=== PATIENT | male | born 1975 | race African-American/Black ===

== ENCOUNTER 2021-12-11 07:35 | Emergency (ER) | payer OTHER ==
[2021-12-11] MEDS ORDERED: NITROGLYCERIN OINT 1 INCH/GM PACKET TOPICAL STA (07:49)
[2021-12-11] MEDS ORDERED: ASPIRIN 81 MG PO STA (07:49)
--- NOTE | 2021-12-11 07:52 | ED ---
General Adult HPI - General Chief complaint: Chest Pain Stated complaint: chest pain, back discomfort Time Seen by Provider: 12/11/21 07:45 Source: patient, RN notes reviewed Mode of arrival: ambulatory Limitations: no limitations - History of Present Illness Initial comments: Patient is a pleasant 45-year-old male presents emergency department with britt more with chest discomfort. Patient had an episode 2 days ago that felt like pressure and just lasted for a few minutes. Patient was sweaty at that time. Patient had return of symptoms last couple of hours. Discomfort in the chest as pressure and near resolved. There is also some mild discomfort of her back. There was some radiation towards left arm. There was some mild dyspnea. No sweating today. Mild nausea. No history of similar symptoms previously. No history of cardiac disease. Patient is father does have history of cardiac disease. - Related Data Home Medications Medication Instructions Recorded Confirmed Aspirin 81 mg PO DAILY 12/11/21 12/11/21 Atorvastatin [Lipitor] 20 mg PO HS 12/11/21 12/11/21 NIFEdipine [NIFEdipine ER 60 mg PO DAILY 12/11/21 12/11/21 (Osmotic)] carvediloL 12.5 mg PO BID 12/11/21 12/11/21 Allergies Allergy/AdvReac Type Severity Reaction Status Date / Time No Known Allergies Allergy Verified 12/11/21 08:44 Review of Systems ROS Statement: Those systems with pertinent positive or pertinent negative responses have been documented in the HPI. ROS Other: All systems not noted in ROS Statement are negative. Constitutional: Denies: fever Eyes: Denies: eye pain ENT: Denies: ear pain Respiratory: Denies: cough Cardiovascular: Reports: as per HPI, chest pain Endocrine: Denies: fatigue Gastrointestinal: Reports: as per HPI. Denies: abdominal pain, vomiting Genitourinary: Denies: dysuria Musculoskeletal: Reports: as per HPI Skin: Denies: rash Neurological: Denies: weakness Past Medical History Past Medical History: No Reported History, Hyperlipidemia, Hypertension History of Any Multi-Drug Resistant Organisms: None Reported Past Surgical History: Appendectomy Past Psychological History: No Psychological Hx Reported Smoking Status: Never smoker Past Alcohol Use History: Occasional Past Drug Use History: None Reported General Exam Limitations: no limitations General appearance: alert, in no apparent distress Head exam: Present: normocephalic Eye exam: Present: normal appearance Neck exam: Present: normal inspection Respiratory exam: Present: normal lung sounds bilaterally. Absent: chest wall tenderness Cardiovascular Exam: Present: regular rate, normal rhythm, normal heart sounds Expanded Peripheral pulses: 2+: Radial (R), Radial (L), Posterior Tibialis (R), Posterior Tibialis (L) GI/Abdominal exam: Present: soft. Absent: tenderness Extremities exam: Present: normal inspection. Absent: pedal edema, calf tenderness Neurological exam: Present: alert Psychiatric exam: Present: normal affect, normal mood Skin exam: Present: normal color Course Vital Signs 12/11/21 12/11/21 07:37 08:03 Temperature 98.0 F 97.1 F L Pulse Rate 66 58 L Respiratory 18 20 Rate Blood Pressure 132/82 134/88 O2 Sat by Pulse 99 98 Oximetry EKG Findings - EKG Comments: EKG Findings:: Sinus rhythm rate 63. CT 188. QRS 89. QT 404. QTC 412. Normal axis. Normal QRS. No acute ST change. Medical Decision Making - Medical Decision Making Patient reevaluated and updated. Patient resting comfortably in bed, symptom- free. Patient advised admission for repeat enzymes, observation, additional testing and cardiac evaluation. Patient refuses this. Patient does demonstrate medical decision making. Patient is made aware that cardiac disease has not been ruled out and heart attack has not been ruled out at this time. Despite this patient refuses to stay and will leave AGAINST MEDICAL ADVICE. Patient states he has thinks he needs computed today. Patient does agree to close follow-up with his doctor and further testing at that point. Patient is specifically made aware of lung nodule and need for follow-up with that as well. - Lab Data Result diagrams: 12/11/21 07:55 12/11/21 07:55 Lab Results 12/11/21 12/11/21 12/11/21 Range/Units 07:55 07:55 07:55 WBC 5.4 (3.8-10.6) k/uL RBC 5.10 (4.30-5.90) m/uL Hgb 13.4 (13.0-17.5) gm/dL Hct 43.8 (39.0-53.0) % MCV 85.9 (80.0-100.0) fL MCH 26.4 (25.0-35.0) pg MCHC 30.7 L (31.0-37.0) g/dL RDW 12.6 (11.5-15.5) % Plt Count 224 (150-450) k/uL MPV 7.9 Neutrophils % 57 % Lymphocytes % 28 % Monocytes % 7 % Eosinophils % 4 % Basophils % 1 % Neutrophils # 3.1 (1.3-7.7) k/uL Lymphocytes # 1.5 (1.0-4.8) k/uL Monocytes # 0.4 (0-1.0) k/uL Eosinophils # 0.2 (0-0.7) k/uL Basophils # 0.0 (0-0.2) k/uL Hypochromasia Slight PT 10.1 (9.0-12.0) sec INR 0.9 (<1.2) APTT 23.3 (22.0-30.0) sec D-Dimer 0.48 (<0.60) mg/L FEU Sodium 141 (137-145) mmol/L Potassium 4.4 (3.5-5.1) mmol/L Chloride 100 (98-107) mmol/L Carbon Dioxide 30 (22-30) mmol/L Anion Gap 11 mmol/L BUN 16 (9-20) mg/dL Creatinine 1.18 (0.66-1.25) mg/dL Est GFR (CKD-EPI)AfAm 85 (>60 ml/min/1.73 sqM) Est GFR (CKD-EPI)NonAf 74 (>60 ml/min/1.73 sqM) Glucose 130 H (74-99) mg/dL Calcium 9.3 (8.4-10.2) mg/dL Magnesium 2.1 (1.6-2.3) mg/dL Total Bilirubin 1.1 (0.2-1.3) mg/dL AST 34 (17-59) U/L ALT 36 (4-49) U/L Alkaline Phosphatase 86 (38-126) U/L Troponin I (0.000-0.034) ng/mL Total Protein 7.7 (6.3-8.2) g/dL Albumin 4.4 (3.5-5.0) g/dL Amylase 120 H (30-110) U/L Lipase 153 (23-300) U/L 12/11/21 Range/Units 07:55 WBC (3.8-10.6) k/uL RBC (4.30-5.90) m/uL Hgb (13.0-17.5) gm/dL Hct (39.0-53.0) % MCV (80.0-100.0) fL MCH (25.0-35.0) pg MCHC (31.0-37.0) g/dL RDW (11.5-15.5) % Plt Count (150-450) k/uL MPV Neutrophils % % Lymphocytes % % Monocytes % % Eosinophils % % Basophils % % Neutrophils # (1.3-7.7) k/uL Lymphocytes # (1.0-4.8) k/uL Monocytes # (0-1.0) k/uL Eosinophils # (0-0.7) k/uL Basophils # (0-0.2) k/uL Hypochromasia PT (9.0-12.0) sec INR (<1.2) APTT (22.0-30.0) sec D-Dimer (<0.60) mg/L FEU Sodium (137-145) mmol/L Potassium (3.5-5.1) mmol/L Chloride (98-107) mmol/L Carbon Dioxide (22-30) mmol/L Anion Gap mmol/L BUN (9-20) mg/dL Creatinine (0.66-1.25) mg/dL Est GFR (CKD-EPI)AfAm (>60 ml/min/1.73 sqM) Est GFR (CKD-EPI)NonAf (>60 ml/min/1.73 sqM) Glucose (74-99) mg/dL Calcium (8.4-10.2) mg/dL Magnesium (1.6-2.3) mg/dL Total Bilirubin (0.2-1.3) mg/dL AST (17-59) U/L ALT (4-49) U/L Alkaline Phosphatase (38-126) U/L Troponin I <0.012 (0.000-0.034) ng/mL Total Protein (6.3-8.2) g/dL Albumin (3.5-5.0) g/dL Amylase (30-110) U/L Lipase (23-300) U/L - Radiology Data Radiology results: image reviewed (Chest x-ray shows right lower lobe lung nodule) Disposition Clinical Impression: Chest pain, Lung nodule Disposition: Left Against Medical Advice Instructions (If sedation given, give patient instructions): Chest Pain (ED) Additional Instructions: You're leaving AGAINST MEDICAL ADVICE. Please do follow-up to primary care physician in the next day or 2 for recheck. Aspirin daily until advised otherwise doctor. Consider further testing including blood work, echo, stress testing, motor racer evaluation. Return for increased pain, difficulty breathing, nausea, sweating, worsening or changing symptoms or any other concerns. Is patient prescribed a controlled substance at d/c from ED?: No Referrals: Hermilo Marlow MD [STAFF PHYSICIAN] - 1-2 days Emiliano Garcia MD [STAFF PHYSICIAN] - 1-2 days Time of Disposition: 09:22
[2021-12-11 08:08] VITALS: TEMP 97.1
[2021-12-11 08:17] LABS: Basophils % (A) 1 %; Eosinophils # (A) 0.2 k/uL (0-0.7); Eosinophils % (A) 4 %; HCT 43.8 % (39.0-53.0); HGB 13.4 gm/dL (13.0-17.5); Hypochromasia Slight; Lymphocytes # (A) 1.5 k/uL (1.0-4.8); Lymphocytes % (A) 28 %; MCH 26.4 pg (25.0-35.0); MCHC 30.7 g/dL (31.0-37.0); MCV 85.9 fL (80.0-100.0); Mean Platelet Volume 7.9; Monocytes # (A) 0.4 k/uL (0-1.0); Monocytes % (A) 7 %; Neutrophils # (A) 3.1 k/uL (1.3-7.7); Neutrophils % (A) 57 %; Platelet Count 224 k/uL (150-450); RDW 12.6 % (11.5-15.5); WBC 5.4 k/uL (3.8-10.6)
--- NOTE | 2021-12-11 08:30 | XR ---
EXAMINATION TYPE: XR chest 2V DATE OF EXAM: 12/11/2021 COMPARISON: None HISTORY: 45-year-old male with chest pain TECHNIQUE: PA and lateral views FINDINGS: The cardiomediastinal silhouette, aorta, and pulmonary vasculature are within normal limits. High den sity nodule measuring 8 mm at the right base. Tiny nodule periphery of the left upper lobe also noted . Suspect underlying calcified granulomas. Otherwise, lungs and pleural spaces are clear. IMPRESSION: A nodule on each side measuring up to 8 mm, suspect underlying calcified granulomas. If the patient h as a significant risk for the development of lung cancer, nonemergent follow-up CT chest can provide more detailed parenchymal assessment. Otherwise, a 3 month follow-up radiograph can be performed. No acute cardiopulmonary process.
[2021-12-11 08:36] LABS: Albumin 4.4 g/dL (3.5-5.0); Calcium 9.3 mg/dL (8.4-10.2); Magnesium 2.1 mg/dL (1.6-2.3); Potassium 4.4 mmol/L (3.5-5.1); Total Bilirubin 1.1 mg/dL (0.2-1.3); Total Protein 7.7 g/dL (6.3-8.2)
[2021-12-11 08:39] LABS: INR 0.9 (<1.2); Partial Thromboplastin Time 23.3 sec (22.0-30.0); Prothrombin Time 10.1 sec (9.0-12.0)
[2021-12-11 09:38] VITALS: BP 129/86; PULSE 65; RESP 16
== END 2021-12-11 09:38 | disposition left against medical advice (07) ==
LOC: EC 07:35
DX: R07.89 Other chest pain (principal); R91.1 Solitary pulmonary nodule; Z53.29 Procedure and treatment not carried out because of patient's decision for other reasons; I10 Essential (primary) hypertension; E78.5 Hyperlipidemia, unspecified; Z79.899 Other long term (current) drug therapy; Z79.82 Long term (current) use of aspirin
CPT/HCPCS: 36415; 71046; 80053; 82150; 83690; 83735; 84484; 85025; 85379; 85610; 85730; 93005; 99285

== ENCOUNTER 2022-01-03 21:41 | Emergency (ER) | payer OTHER ==
[2022-01-03 21:48] VITALS: TEMP 99.3
[2022-01-03] MEDS ORDERED: NITROGLYCERIN SL TABS 0.4 MG TAB SUBLINGUAL STA ×2 (21:49)
--- NOTE | 2022-01-03 21:54 | ED ---
General Adult HPI - General Chief complaint: Chest Pain Stated complaint: Chest Pain Time Seen by Provider: 01/03/22 21:44 Source: patient, EMS, RN notes reviewed, old records reviewed Mode of arrival: EMS Limitations: no limitations - History of Present Illness Initial comments: Patient is a 46-year-old male who presents emergency Department complaining of chest pain. Discussed the chest pain as substernal in nature. Does not radiate. It began suddenly at 3 PM all he was sitting at a desk. Denies any other associated features with including diaphoresis, lightheadedness, blurry vision, shortness of breath. Denies any nausea or vomiting. Denies abdominal pain. She has had this pain previously. Since 3 PM, it has lessened in intensity but is still present. Is somewhat reproduced with movements of his arms, however it is not a full pain he states. Nonreproducible palpation. Family history of heart disease, however no history of heart disease in the patient. No other acute complaints at this time. Presents to the emergency department over concern for his heart. Patient took 324mg aspirin at home prior to arrival.Denies orthopnea, lower extremity swelling, PND, shortness of breath.Patient's past medical history includes hypertension. - Related Data Home Medications Medication Instructions Recorded Confirmed Aspirin 81 mg PO DAILY 12/11/21 12/11/21 Atorvastatin [Lipitor] 20 mg PO HS 12/11/21 12/11/21 NIFEdipine [NIFEdipine ER 60 mg PO DAILY 12/11/21 12/11/21 (Osmotic)] carvediloL 12.5 mg PO BID 12/11/21 12/11/21 Allergies Allergy/AdvReac Type Severity Reaction Status Date / Time No Known Allergies Allergy Verified 12/11/21 08:44 Review of Systems ROS Statement: Those systems with pertinent positive or pertinent negative responses have been documented in the HPI. Review of Systems: CONST: Denies fever EYES: Denies blurry vision ENT: Denies nasal congestion C/V: Endorses chest pain RESP: Denies shortness of breath GI: Denies abdominal pain : Denies dysuria SKIN: Denies rash. MSK: Denies joint pain. NEURO: Denies headache ROS Other: All systems not noted in ROS Statement are negative. Past Medical History Past Medical History: No Reported History, Hyperlipidemia, Hypertension History of Any Multi-Drug Resistant Organisms: None Reported Past Surgical History: Appendectomy Past Psychological History: No Psychological Hx Reported Smoking Status: Never smoker Past Alcohol Use History: Occasional Past Drug Use History: None Reported General Exam - General Exam Comments Initial Comments: General: Appears in no acute distress. HEAD: Normal with no signs of head trauma. EYES: PERRLA, EOMI, conjunctiva normal, no discharge. ENT: Hearing grossly intact, normal oropharynx. RESPIRATORY: Clear breath sounds bilaterally. No wheezes, rales, or rhonchi. C/V: Regular rate and rhythm. S1 and S2 auscultated, no edema, peripheral pulses 2+ and intact throughout. Chest pain nonreproducible on palpation. ABD: Abd is soft, nontender, nondistended EXT: Normal range of motion, no obvious deformity SKIN: No rashes or lesions observed on exposed skin. NEURO: Alert and oriented 4. No focal sensory strength deficits. Limitations: no limitations Course Vital Signs 01/03/22 01/03/22 01/04/22 21:43 22:49 03:06 Temperature 99.3 F Pulse Rate 77 74 66 Respiratory 20 18 18 Rate Blood Pressure 147/109 128/74 121/76 O2 Sat by Pulse 99 98 100 Oximetry Medical Decision Making - Medical Decision Making Based on the patient's presentation and physical exam, I'm concerned for possible cardiopulmonary etiology for his current chest pain. It has been ongoing for multiple hours. States he has had pain previously. Prior cardiac workups he states have been normal. Did receive stress testing 3 days ago which was normal. Presents for further evaluation at this time. We will obtain cardiac labs including EKG, chest x-ray, troponin. He already received 324mg of aspirin. We will attempt nitroglycerin tablets to see if that addresses the pain. Patient was in agreement with this plan. Vital signs are within normal limits. EKG shows no signs of ischemia. Unchanged for prior EKGs from last month.Labo ratory studies are remarkable for a slightly increased creatinine of 1.43. Initial troponin is undetectable. Remainder of labs are unremarkable. Chest x- ray shows no acute cardiopulmonary process. Patient was administered initial nitroglycerin tablet without any change in his symptoms. Second nitro glycerin tablet was administered and once again no change in in symptoms. He does have a mild headache at this time. I did discuss with him, with his heart score being low at 2-3, and is negative workup at this time I have low suspicion this is cardiac pain at this time. However I did offer him a second troponin test, and he was in agreement with this plan. He'll be given Toradol for his headache at this time. Repeat troponin 3 hours after the initial was negative. I updated him on the results. I believe this is low risk chest pain. I believe it is safe for him to be discharged home at this time with close follow-up. He does have a follow- up appointment with his PCP within the next week. He was in agreement this plan. Strict return precautions were discussed. No longer has any chest pain at this time. I instructed the patient to follow up with their PCP in the next 1-3 days. I explained that the patient should return to the emergency department if they e xperience any worsening symptoms. Strict return precautions were discussed with the patient. The patient expressed understanding of these instructions. I answered all questions that the patient had. The patient was discharged home in good condition with their prescriptions and follow up information. - Lab Data Result diagrams: 01/03/22 21:56 01/03/22 21:56 Lab Results 01/03/22 01/03/22 01/03/22 Range/Units 21:56 21:56 21:56 WBC 5.8 (3.8-10.6) k/uL RBC 4.97 (4.30-5.90) m/uL Hgb 13.1 (13.0-17.5) gm/dL Hct 42.1 (39.0-53.0) % MCV 84.8 (80.0-100.0) fL MCH 26.3 (25.0-35.0) pg MCHC 31.1 (31.0-37.0) g/dL RDW 12.9 (11.5-15.5) % Plt Count 248 (150-450) k/uL MPV 8.2 Neutrophils % 53 % Lymphocytes % 34 % Monocytes % 7 % Eosinophils % 3 % Basophils % 1 % Neutrophils # 3.0 (1.3-7.7) k/uL Lymphocytes # 1.9 (1.0-4.8) k/uL Monocytes # 0.4 (0-1.0) k/uL Eosinophils # 0.2 (0-0.7) k/uL Basophils # 0.1 (0-0.2) k/uL PT 11.3 (9.0-12.0) sec INR 1.0 (<1.2) APTT 24.8 (22.0-30.0) sec Sodium 140 (137-145) mmol/L Potassium 3.7 (3.5-5.1) mmol/L Chloride 102 (98-107) mmol/L Carbon Dioxide 25 (22-30) mmol/L Anion Gap 13 mmol/L BUN 19 (9-20) mg/dL Creatinine 1.43 H (0.66-1.25) mg/dL Est GFR (CKD-EPI)AfAm 67 (>60 ml/min/1.73 sqM) Est GFR (CKD-EPI)NonAf 58 (>60 ml/min/1.73 sqM) Glucose 101 H (74-99) mg/dL Calcium 9.6 (8.4-10.2) mg/dL Magnesium 2.0 (1.6-2.3) mg/dL Total Bilirubin 1.8 H (0.2-1.3) mg/dL AST 44 (17-59) U/L ALT 41 (4-49) U/L Alkaline Phosphatase 91 (38-126) U/L Troponin I (0.000-0.034) ng/mL Total Protein 8.0 (6.3-8.2) g/dL Albumin 4.5 (3.5-5.0) g/dL 01/03/22 01/04/22 Range/Units 21:56 00:57 WBC (3.8-10.6) k/uL RBC (4.30-5.90) m/uL Hgb (13.0-17.5) gm/dL Hct (39.0-53.0) % MCV (80.0-100.0) fL MCH (25.0-35.0) pg MCHC (31.0-37.0) g/dL RDW (11.5-15.5) % Plt Count (150-450) k/uL MPV Neutrophils % % Lymphocytes % % Monocytes % % Eosinophils % % Basophils % % Neutrophils # (1.3-7.7) k/uL Lymphocytes # (1.0-4.8) k/uL Monocytes # (0-1.0) k/uL Eosinophils # (0-0.7) k/uL Basophils # (0-0.2) k/uL PT (9.0-12.0) sec INR (<1.2) APTT (22.0-30.0) sec Sodium (137-145) mmol/L Potassium (3.5-5.1) mmol/L Chloride (98-107) mmol/L Carbon Dioxide (22-30) mmol/L Anion Gap mmol/L BUN (9-20) mg/dL Creatinine (0.66-1.25) mg/dL Est GFR (CKD-EPI)AfAm (>60 ml/min/1.73 sqM) Est GFR (CKD-EPI)NonAf (>60 ml/min/1.73 sqM) Glucose (74-99) mg/dL Calcium (8.4-10.2) mg/dL Magnesium (1.6-2.3) mg/dL Total Bilirubin (0.2-1.3) mg/dL AST (17-59) U/L ALT (4-49) U/L Alkaline Phosphatase (38-126) U/L Troponin I <0.012 <0.012 (0.000-0.034) ng/mL Total Protein (6.3-8.2) g/dL Albumin (3.5-5.0) g/dL - EKG Data -: EKG Interpreted by Me EKG Comments: 12-lead Electrocardiogram Interpretation Note EKG was reviewed and interpreted by myself. 12-lead ECG performed at 2140 is interpreted by me as revealing normal sinus rhythm at a rate of 61 beats per minute. [place] is normal. ME interval is 206 seconds, QRS duration is 92 ms, QTc is 405 ms.. There were no ST or T wave abnormalities to suggest myocardial i schemia or injury. R wave progression across the precordium was satisfactory. By my interpretation this EKG is non-diagnostic for acute ischemia. No change when compared with prior EKGs from December 2021. Disposition Clinical Impression: Atypical chest pain Disposition: HOME SELF-CARE Condition: Good Instructions (If sedation given, give patient instructions): Chest Pain (ED) Is patient prescribed a controlled substance at d/c from ED?: No Referrals: Nonstaff,Physician [Primary Care Provider] - 1-2 days Time of Disposition: 01:35
[2022-01-03 22:04] LABS: Basophils # (A) 0.1 k/uL (0-0.2); Basophils % (A) 1 %; Eosinophils # (A) 0.2 k/uL (0-0.7); Eosinophils % (A) 3 %; HCT 42.1 % (39.0-53.0); HGB 13.1 gm/dL (13.0-17.5); Lymphocytes # (A) 1.9 k/uL (1.0-4.8); Lymphocytes % (A) 34 %; MCH 26.3 pg (25.0-35.0); MCHC 31.1 g/dL (31.0-37.0); MCV 84.8 fL (80.0-100.0); Mean Platelet Volume 8.2; Monocytes # (A) 0.4 k/uL (0-1.0); Monocytes % (A) 7 %; Neutrophils % (A) 53 %; Platelet Count 248 k/uL (150-450); RBC 4.97 m/uL (4.30-5.90); RDW 12.9 % (11.5-15.5); WBC 5.8 k/uL (3.8-10.6)
[2022-01-03 22:16] LABS: Albumin 4.5 g/dL (3.5-5.0); Calcium 9.6 mg/dL (8.4-10.2); Potassium 3.7 mmol/L (3.5-5.1); Total Bilirubin 1.8 mg/dL (0.2-1.3)
[2022-01-03 22:17] LABS: Prothrombin Time 11.3 sec (9.0-12.0)
[2022-01-03 22:18] LABS: Partial Thromboplastin Time 24.8 sec (22.0-30.0)
--- NOTE | 2022-01-03 22:19 | XR ---
EXAMINATION TYPE: XR chest 2V DATE OF EXAM: 01/03/2022 COMPARISON: 12/11/2021 HISTORY: Chest pain TECHNIQUE: FINDINGS: Heart is normal. Lungs are clear of infiltrate. No heart failure. There are no hilar masses . Costophrenic angles are clear. Bony thorax is intact. IMPRESSION: Normal chest. No change.
[2022-01-03 22:50] VITALS: RESP 18
[2022-01-03] MEDS ORDERED: KETOROLAC 15 MG/ML 1 ML VIAL IVP STA (23:23)
[2022-01-03] MEDS ORDERED: SODIUM CHLORIDE 0.9% 1,000 ML IV STA (23:23)
[2022-01-04 03:06] VITALS: BP 121/76; PULSE 66
== END 2022-01-04 03:06 | disposition home or self-care (01) ==
LOC: EC 21:41
DX: R07.89 Other chest pain (principal); R51.9 Headache, unspecified; I10 Essential (primary) hypertension; E78.5 Hyperlipidemia, unspecified; Z79.82 Long term (current) use of aspirin; Z79.899 Other long term (current) drug therapy
CPT/HCPCS: 99285 ×2; 96374 ×2; 96361 ×2; 36415 ×2; 93005; 80053; 83735; 84484 ×2; 85025; 85610; 85730; 71046; J1885

== ENCOUNTER 2022-01-05 00:38 | Emergency (ER) | payer OTHER ==
[2022-01-05 00:45] VITALS: TEMP 98.3
[2022-01-05 01:26] LABS: Basophils % (A) 1 %; Eosinophils # (A) 0.1 k/uL (0-0.7); Eosinophils % (A) 2 %; HCT 42.7 % (39.0-53.0); HGB 13.9 gm/dL (13.0-17.5); Lymphocytes # (A) 1.3 k/uL (1.0-4.8); Lymphocytes % (A) 22 %; MCH 27.8 pg (25.0-35.0); MCHC 32.5 g/dL (31.0-37.0); MCV 85.5 fL (80.0-100.0); Mean Platelet Volume 7.7; Monocytes # (A) 0.3 k/uL (0-1.0); Monocytes % (A) 5 %; Neutrophils % (A) 68 %; Platelet Count 255 k/uL (150-450); RBC 4.99 m/uL (4.30-5.90); RDW 12.9 % (11.5-15.5); WBC 5.9 k/uL (3.8-10.6)
[2022-01-05 01:39] LABS: Albumin 4.6 g/dL (3.5-5.0); Calcium 9.3 mg/dL (8.4-10.2); Potassium 3.8 mmol/L (3.5-5.1); Total Bilirubin 1.7 mg/dL (0.2-1.3); Total Protein 8.1 g/dL (6.3-8.2)
[2022-01-05 02:04] LABS: Prothrombin Time 10.8 sec (9.0-12.0)
--- NOTE | 2022-01-05 02:51 | ED ---
General Adult HPI - General Chief complaint: Headache Stated complaint: Dizziness, Head Pain Time Seen by Provider: 01/05/22 02:40 Source: patient, EMS, RN notes reviewed, old records reviewed Mode of arrival: EMS Limitations: no limitations - History of Present Illness Initial comments: This is a well-appearing 46-year-old male that presents to the emergency room with complaints of lightheadedness that started at 11:00 when he was at home doing dishes this morning. Patient states he sat down and it resolved after about 5 minutes. He states symptoms started approximately half hour after taking his carvedilol. He went to work later that afternoon and was sitting at the desk and he had additional episodes of lightheadedness that would come and g o throughout the day. He states he also felt a sharp pain in the top of his head and then felt tremulous in his arms and legs and is concerned for a possible seizure. He states he did not loose consciousness or become incontinent of bowel or bladder. No previous history of seizure disorder. -: hour(s) (14) Location: head Radiation: non-radiation Severity scale (1-10): 4 Quality: other (tingling) Consistency: now resolved Associated Symptoms: headaches, other (lightheaded with tremors, resolved) Treatments Prior to Arrival: none - Related Data Home Medications Medication Instructions Recorded Confirmed Aspirin 81 mg PO DAILY 12/11/21 12/11/21 Atorvastatin [Lipitor] 20 mg PO HS 12/11/21 12/11/21 NIFEdipine [NIFEdipine ER 60 mg PO DAILY 12/11/21 12/11/21 (Osmotic)] carvediloL 12.5 mg PO BID 12/11/21 12/11/21 Allergies Allergy/AdvReac Type Severity Reaction Status Date / Time No Known Allergies Allergy Verified 01/05/22 00:43 Review of Systems ROS Statement: Those systems with pertinent positive or pertinent negative responses have been documented in the HPI. ROS Other: All systems not noted in ROS Statement are negative. Past Medical History Past Medical History: No Reported History, Hyperlipidemia, Hypertension History of Any Multi-Drug Resistant Organisms: None Reported Past Surgical History: Appendectomy Past Psychological History: No Psychological Hx Reported Smoking Status: Never smoker Past Alcohol Use History: Occasional Past Drug Use History: None Reported General Exam Limitations: no limitations General appearance: alert, in no apparent distress Head exam: Present: atraumatic, normocephalic, normal inspection Eye exam: Present: normal appearance. Absent: scleral icterus, conjunctival injection, periorbital swelling ENT exam: Present: mucous membranes moist Neck exam: Present: normal inspection, full ROM. Absent: tenderness, meningismus, lymphadenopathy Respiratory exam: Present: normal lung sounds bilaterally. Absent: respiratory distress, wheezes, rales, rhonchi, stridor, chest wall tenderness, accessory muscle use Cardiovascular Exam: Present: bradycardia (58) GI/Abdominal exam: Present: soft. Absent: distended, tenderness Extremities exam: Present: normal inspection, full ROM, normal capillary refill. Absent: tenderness, pedal edema Back exam: Present: full ROM. Absent: tenderness, CVA tenderness (R), CVA ten derness (L), rash noted Neurological exam: Present: alert, oriented X3, CN II-XII intact, normal gait Expanded Patient oriented to: Present: person, place, time Speech: Present: fluid speech Cranial nerves: EOM's Intact: Normal, Gag Reflex: Normal, Tongue Deviation: Normal Cerebellar function: Finger to Nose: Normal, Heel to [place]: Normal Motor strength exam: RUE: 5, LUE: 5, RLE: 5, LLE: 5 Eye Response: (4) open spontaneously Motor Response: (6) obeys commands Verbal Response: (5) oriented Aileen Total: 15 Psychiatric exam: Present: normal affect, normal mood Skin exam: Present: warm, dry, intact, normal color. Absent: cyanosis, diaphoretic, petechiae, pallor Course Vital Signs 01/05/22 00:43 Temperature 98.3 F Pulse Rate 63 Respiratory 16 Rate Blood Pressure 111/69 O2 Sat by Pulse 99 Oximetry EKG Findings - EKG Results: EKG: sinus rhythm EKG shows: bradycardia (Ventricular rate 58, SC interval 0.210, QRS 0.88, QTc 0.407) Medical Decision Making - Medical Decision Making No significant change in CBC and electrolytes compared to 2 days ago. Troponin is negative. EKG shows sinus bradycardia with a rate of 58. Chest x-ray shows no acute cardiopulmonary disease. Patient is aware of the granuloma in the left mid lung, directed to follow up with his primary care doc tor for monitoring. CT of the brain shows no edema, midline shift, mass or intracranial bleed. Patient has no focal neurological deficits. Vital signs are stable. Patient has been to the ER multiple times in the past month for chest pain, numbness and tingling of the left arm and now with numbness to his face with intermittent lightheadedness. At this time I do not have a source or reason for the patient's complaints. He has been asymptomatic while in the emergency room. We did discuss the possibility this may be medication related. He may be having episodes of worsening bradycardia or hypotensive episodes. Patient was instructed to check his blood pressure and heart rate prior to taking his medications in the morning and in the evening and report to his primary care doctor next week. He does have an appointment on the . He was directed to return to the emergency room with any new or concerning symptoms. He is agreeable to this plan of care. Case was discussed with Dr. Camacho. - Lab Data Result diagrams: 01/05/22 01:00 01/05/22 01:00 Lab Results 01/05/22 01/05/22 01/05/22 Range/Units 01:00 01:00 01:00 WBC 5.9 (3.8-10.6) k/uL RBC 4.99 (4.30-5.90) m/uL Hgb 13.9 (13.0-17.5) gm/dL Hct 42.7 (39.0-53.0) % MCV 85.5 (80.0-100.0) fL MCH 27.8 (25.0-35.0) pg MCHC 32.5 (31.0-37.0) g/dL RDW 12.9 (11.5-15.5) % Plt Count 255 (150-450) k/uL MPV 7.7 Neutrophils % 68 % Lymphocytes % 22 % Monocytes % 5 % Eosinophils % 2 % Basophils % 1 % Neutrophils # 4.0 (1.3-7.7) k/uL Lymphocytes # 1.3 (1.0-4.8) k/uL Monocytes # 0.3 (0-1.0) k/uL Eosinophils # 0.1 (0-0.7) k/uL Basophils # 0.0 (0-0.2) k/uL PT 10.8 (9.0-12.0) sec INR 1.0 (<1.2) APTT 24.0 (22.0-30.0) sec Sodium 138 (137-145) mmol/L Potassium 3.8 (3.5-5.1) mmol/L Chloride 99 (98-107) mmol/L Carbon Dioxide 25 (22-30) mmol/L Anion Gap 14 mmol/L BUN 15 (9-20) mg/dL Creatinine 1.32 H (0.66-1.25) mg/dL Est GFR (CKD-EPI)AfAm 74 (>60 ml/min/1.73 sqM) Est GFR (CKD-EPI)NonAf 64 (>60 ml/min/1.73 sqM) Glucose 124 H (74-99) mg/dL Calcium 9.3 (8.4-10.2) mg/dL Total Bilirubin 1.7 H (0.2-1.3) mg/dL AST 49 (17-59) U/L ALT 43 (4-49) U/L Alkaline Phosphatase 91 (38-126) U/L Troponin I (0.000-0.034) ng/mL Total Protein 8.1 (6.3-8.2) g/dL Albumin 4.6 (3.5-5.0) g/dL 01/05/22 Range/Units 01:00 WBC (3.8-10.6) k/uL RBC (4.30-5.90) m/uL Hgb (13.0-17.5) gm/dL Hct (39.0-53.0) % MCV (80.0-100.0) fL MCH (25.0-35.0) pg MCHC (31.0-37.0) g/dL RDW (11.5-15.5) % Plt Count (150-450) k/uL MPV Neutrophils % % Lymphocytes % % Monocytes % % Eosinophils % % Basophils % % Neutrophils # (1.3-7.7) k/uL Lymphocytes # (1.0-4.8) k/uL Monocytes # (0-1.0) k/uL Eosinophils # (0-0.7) k/uL Basophils # (0-0.2) k/uL PT (9.0-12.0) sec INR (<1.2) APTT (22.0-30.0) sec Sodium (137-145) mmol/L Potassium (3.5-5.1) mmol/L Chloride (98-107) mmol/L Carbon Dioxide (22-30) mmol/L Anion Gap mmol/L BUN (9-20) mg/dL Creatinine (0.66-1.25) mg/dL Est GFR (CKD-EPI)AfAm (>60 ml/min/1.73 sqM) Est GFR (CKD-EPI)NonAf (>60 ml/min/1.73 sqM) Glucose (74-99) mg/dL Calcium (8.4-10.2) mg/dL Total Bilirubin (0.2-1.3) mg/dL AST (17-59) U/L ALT (4-49) U/L Alkaline Phosphatase (38-126) U/L Troponin I <0.012 (0.000-0.034) ng/mL Total Protein (6.3-8.2) g/dL Albumin (3.5-5.0) g/dL Disposition Clinical Impression: Episodic lightheadedness Disposition: HOME SELF-CARE Condition: Good Instructions (If sedation given, give patient instructions): Lightheadedness (ED) Additional Instructions: Please check your blood pressure and heart rate prior to taking your medication in the morning and in the evening. Keep a diary of your symptoms, how long they last and what time of day. Follow-up with your primary care doctor next week. Return to the emergency room with any new or concerning symptoms including weakness, headaches, chest pain or difficulty in breathing. Is patient prescribed a controlled substance at d/c from ED?: No Referrals: Nonstaff,Physician [Primary Care Provider] - 1-2 days Time of Disposition: 03:56
--- NOTE | 2022-01-05 03:17 | CT ---
EXAMINATION TYPE: CT brain wo con DATE OF EXAM: 01/05/2022 COMPARISON: None HISTORY: Dizziness/ lightheaded CT DLP: 1123.4 mGycm Automated exposure control for dose reduction was used. Images of the brain obtained with no contrast. Ventricles have normal size. There is no mass effect or midline shift. No sign of intracranial hemorr tiera. Calvarium is intact and there is normal aeration of the mastoid sinuses. Skull base is intact. No evidence of cerebral edema. IMPRESSION: Negative unenhanced head CT scan.
--- NOTE | 2022-01-05 03:18 | XR ---
EXAMINATION TYPE: XR chest 2V DATE OF EXAM: 01/05/2022 COMPARISON: 01/03/2022 HISTORY: Lightheadedness. TECHNIQUE: 2 views FINDINGS: Heart and mediastinum are normal. Lungs are clear of infiltrate. There are small calcified granuloma in the left mid lung. There are no hilar masses. Costophrenic angles are clear. Bony thorax is intact IMPRESSION: No active cardiopulmonary disease. Normal heart. No significant change.
[2022-01-05 04:43] VITALS: BP 117/68; PULSE 74; RESP 15
== END 2022-01-05 04:43 | disposition home or self-care (01) ==
LOC: EC 00:38
DX: R42 Dizziness and giddiness (principal); R51.9 Headache, unspecified; R20.0 Anesthesia of skin; E78.5 Hyperlipidemia, unspecified; I10 Essential (primary) hypertension; Z79.82 Long term (current) use of aspirin; Z79.899 Other long term (current) drug therapy
CPT/HCPCS: 36415; 70450; 71046; 80053; 84484; 85025; 85610; 85730; 93005; 99284

== ENCOUNTER 2022-04-18 21:04 | Emergency (ER) | payer OTHER ==
[2022-04-18 21:50] VITALS: BP 133/77; PULSE 67; RESP 20; TEMP 98.5
[2022-04-18] MEDS ORDERED: ETODOLAC 400 MG TAB PO STA (22:52)
[2022-04-18] MEDS ORDERED: Acetaminophen-Codeine 300-30mg TAB PO STA (22:52)
[2022-04-18] MEDS ORDERED: DEXAMETHASONE SOD PHOSPHATE 10 MG/ML 1 ML VIAL IM STA (22:52)
--- NOTE | 2022-04-18 22:52 | ED ---
Extremity Problem HPI - General Chief complaint: Extremity Problem,Nontraumatic Stated complaint: L arm injury Time Seen by Provider: 04/18/22 22:22 Source: patient, RN notes reviewed, old records reviewed Mode of arrival: ambulatory Limitations: no limitations - History of Present Illness Initial comments: This is a 46-year-old male to the emergency department for evaluation. Patient coming a little pain no somatic injury noted that left elbow. Patient has no history of significant similar left elbow pain. Today patient's pain maintains in that left elbow. Again no traumatic injury. No chest pain or shortness of breath. Patient does have history of high blood pressure high cholesterol no other complaints MD Complaint: extremity pain, joint pain -: hour(s) (() Location: left, upper extremity History of Same: Yes -: Yes arthralgia Radiation: proximal Severity scale (1-10): 7 Quality: aching, sharp Consistency: constant Improves with: nothing Worsens with: nothing Associated Symptoms: denies other symptoms - Related Data Home Medications Medication Instructions Recorded Confirmed Aspirin 81 mg PO DAILY 12/11/21 12/11/21 Atorvastatin [Lipitor] 20 mg PO HS 12/11/21 12/11/21 NIFEdipine [NIFEdipine ER 60 mg PO DAILY 12/11/21 12/11/21 (Osmotic)] carvediloL 12.5 mg PO BID 12/11/21 12/11/21 Allergies Allergy/AdvReac Type Severity Reaction Status Date / Time No Known Allergies Allergy Verified 04/18/22 21:49 Review of Systems ROS Statement: Those systems with pertinent positive or pertinent negative responses have been documented in the HPI. ROS Other: All systems not noted in ROS Statement are negative. Past Medical History Past Medical History: No Reported History, Hyperlipidemia, Hypertension History of Any Multi-Drug Resistant Organisms: None Reported Past Surgical History: Appendectomy Past Psychological History: No Psychological Hx Reported Smoking Status: Never smoker Past Alcohol Use History: Occasional Past Drug Use History: None Reported General Exam Limitations: no limitations General appearance: alert, in no apparent distress Head exam: Present: atraumatic, normocephalic, normal inspection Eye exam: Present: normal appearance, PERRL, EOMI. Absent: scleral icterus, conjunctival injection, periorbital swelling ENT exam: Present: normal exam, mucous membranes moist Neck exam: Present: normal inspection. Absent: tenderness, meningismus, lymphadenopathy Respiratory exam: Present: normal lung sounds bilaterally. Absent: respiratory distress, wheezes, rales, rhonchi, stridor Cardiovascular Exam: Present: regular rate, normal rhythm, normal heart sounds. Absent: systolic murmur, diastolic murmur, rubs, gallop, clicks GI/Abdominal exam: Present: soft, normal bowel sounds. Absent: distended, tenderness, guarding, rebound, rigid Extremities exam: Present: normal inspection, full ROM, normal capillary refill, other (Left elbow swelling tenderness and bogginess no erythema). Absent: tenderness, pedal edema, joint swelling, calf tenderness Back exam: Present: normal inspection Neurological exam: Present: alert, oriented X3, CN II-XII intact Psychiatric exam: Present: normal affect, normal mood Skin exam: Present: warm, dry, intact, normal color. Absent: rash Course Vital Signs 04/18/22 21:44 Temperature 98.5 F Pulse Rate 67 Respiratory 20 Rate Blood Pressure 133/77 O2 Sat by Pulse 98 Oximetry - Reevaluation(s) Reevaluation #1: 04/18/22 medical record is reviewed Patient symptoms are improved here in the ER Patient informed of results and questions answered Medical Decision Making - Medical Decision Making 46 male to the emergency department for evaluation of left elbow pain severe. Patient does have olecranon bursitis left elbow. Report of care will be advised and patient can be discharged home Disposition Clinical Impression: Olecranon bursitis of left elbow, Elbow pain Disposition: HOME SELF-CARE Condition: Good Instructions (If sedation given, give patient instructions): Arthralgia (ED), Swollen Joint (ED) Is patient prescribed a controlled substance at d/c from ED?: No Referrals: Farnaz Dumont MD [STAFF PHYSICIAN] - 1-2 days Maurizio Rodríguez MD [STAFF PHYSICIAN] - 1-2 days Time of Disposition: 23:00
[2022-04-18] MEDS ORDERED: ONDANSETRON 4 MG ODT STARTER PACK 2 TAB BTL PO STA (22:53)
[2022-04-18] MEDS ORDERED: ACET/COD 300 MG/30 MG STARTER PACK 6 TAB BTL PO STA (22:53)
[2022-04-18] MEDS ORDERED: IBUPROFEN 600 MG STARTER PACK 4 TAB BTL PO STA (22:53)
== END 2022-04-18 23:43 | disposition home or self-care (01) ==
LOC: EC 21:04
DX: M70.22 Olecranon bursitis, left elbow (principal); I10 Essential (primary) hypertension; E78.5 Hyperlipidemia, unspecified; Z79.899 Other long term (current) drug therapy; Z79.82 Long term (current) use of aspirin; Z90.89 Acquired absence of other organs
CPT/HCPCS: 99283; 96372; J1100; S0119